=== PATIENT | male | born 1995 | race Caucasian/White ===

== ENCOUNTER 2016-11-04 09:54 | Emergency (ER) | payer BC, MEDICAID ==
[~2016-11-04] VITALS: Ht 175.3 cm; Wt 68.8 kg
[2016-11-04] MEDS ORDERED: IBUP60TA GT (10:02)
[2016-11-04] MEDS ORDERED: FLUORESCEIN OPHTH 1 MG STRIP OD ONE (10:30)
[2016-11-04] MEDS ORDERED: TETRACAINE 0.5% OPHTH SOLN 4ML OD ONE (10:30)
[2016-11-04] MEDS ORDERED: CYCL1SOL OD (11:17)
[2016-11-04] MEDS ORDERED: OFLO3OPSO OD (11:17)
[2016-11-04 11:23] VITALS: BP 120/68
== END 2016-11-04 11:24 | disposition home or self-care (01) ==
LOC: M ED 10:24
DX: H10.31 Unspecified acute conjunctivitis, right eye (principal); H20.9 Unspecified iridocyclitis

== ENCOUNTER 2021-01-04 18:28 | Emergency (ER) | payer MEDICAID, OTHER ==
[~2021-01-04] VITALS: Ht 175.3 cm; Wt 75.3 kg
[~2021-01-04 18:28] MED LIST: CYCL1SOL OD; IBUP1TAB6 GT; OFLO3OPSO OD
[2021-01-04 18:29] VITALS: BP 148/90
== END 2021-01-04 19:46 | disposition left against medical advice (07) ==
LOC: M ED 18:28
DX: Z53.29 Procedure and treatment not carried out because of patient's decision for other reasons (principal)